=== PATIENT | male | born 2005 | race Caucasian/White ===

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

== ENCOUNTER → 2023-01-11 | Outpatient (CLI) | payer OTHER | LOC: M WUC 13:49 | PROVIDERS: ATTEND Physician Assistant | DX: S50.02XA Contusion of left elbow, initial encounter (principal); X58.XXXA Exposure to other specified factors, initial encounter; Y92.9 Unspecified place or not applicable; Y93.9 Activity, unspecified; Y99.9 Unspecified external cause status; M79.89 Other specified soft tissue disorders ==